=== PATIENT | male | born 1965 | race Caucasian/White ===

== ENCOUNTER 2024-05-13 10:43 | Emergency (ER) | payer OTHER, SELFPAY ==
[2024-05-13 10:45] VITALS: BP 166/98
--- NOTE | 2024-05-13 11:37 | ED.GENMED ---
History of Present Illness
General
Chief Complaint: Musculo-Skeletal Complaint
Source: patient
Time Seen by Provider: 05/13/24 11:18
History of Present Illness
History of Present Illness:
58-year-old male presenting to the emergency department for evaluation of bilateral knee pain after jumping out of a truck while at work and sustained pain to both knees stating he has a little bit more pain in the left knee but his right knee does
have a burning sensation. He notes that he had a previous meniscus repair about a year or so ago to the left knee. States he is able to ambulate but with some discomfort. No other injuries were sustained.
Past History
Past History
ED Past Medical History: None
ED Past Surgical History: Orthopedic and Other
Social History
Tobacco: Non-smoker
Alcohol: None
Drug: None
Personal:
Living: with family
Employment: Employed
Review of Systems
Review of Systems
All Other Systems: ROS reviewed and negative except as documented in HPI and ROS
Phy Exam
Physical Exam
Physical Exam:
GENERAL: Alert , in no apparent distress
EYE: conjunctiva clear
Head: Normocephalic atraumatic
NECK: Supple,
ENT: mmm.
LUNGS: no acute respiratory distress
NEUROLOGICAL: Alert and oriented
SKIN: Warm and dry, skin intact.
MUSCULOSKELETAL: Left lower extremity: No obvious deformity, erythema, edema, ecchymosis, abrasions or lacerations. Patient allows for full range of motion of the left knee without much difficulty. Mild tenderness over the anteromedial patella.
Remainder of extremity is warm well-perfused. Right lower extremity: No obvious deformity, erythema, edema, ecchymosis, abrasions or lacerations. Mild tenderness over the patella but otherwise nothing focal.
PSYCH: Normal and appropriate interaction.
Scores
Heart Failure Risk
Heart Failure Risk Score: Not Applicable
Heart Score for Chest Pain Patients
STEMI patient?: Not applicable
Withdrawal Assessment of Alcohol
Withdrawal Assessment Completed?: Not applicable
Course
Orders/Labs/Results
Orders:
Orders
05/13/24 10:47
CR Knee- Right 4 Or More View* Urgent
Comment:
Reason For Exam: pain
Knee, Left 4 or More Views [CR Knee - Left 4 Or More View*] Urgent
Comment:
Reason For Exam: pain
05/13/24 11:37
Sammy Wrap Left-Treatment ONCE
Sammy Wrap Right-Treatment ONCE
Vital Signs
Initial and Last Documented VS:
Initial Vital Signs
Temp Pulse Resp BP Pulse Ox
98.0 F 65 18 166/98 97
05/13/24 10:45 05/13/24 10:45 05/13/24 10:45 05/13/24 10:45 05/13/24 10:45
Last Documented Vital Signs
Temp Pulse Resp BP Pulse Ox
98.0 F 65 18 166/98 97
05/13/24 10:45 05/13/24 10:45 05/13/24 10:45 05/13/24 10:45 05/13/24 10:45
MDM/Problems Addressed
Differential Diagnosis Includes:
Contusion, ligamentous injury, meniscal injury, fracture
MDM/Problems Addressed:
58-year-old male presenting to the emergency department for evaluation of bilateral knee pain following an injury while at work. X-rays ordered from triage which do not show any significant abnormalities or joint effusions. Will place in a Sammy
wrap for comfort. NSAIDs/Tylenol as needed for pain. Patient will follow-up with [facility] orthopedics who performed his previous surgery in the past. Aware of return precautions to the ER.
*Radiology
Radiology exam reviewed: preliminary read by ED provider (No acute fracture)
*Pulse Oximetry
Patient hypoxic: no
*Critical Care Note
Total Time (30-74mins, 75-104mins- exclusive of procedures): Not Applicable
ED Attending Note
-
Portions of this chart may have been created with voice recognition software.� Occasional wrong word or��sound alike� substitutions may have occurred due to the inherent limitations of voice recognition software.
Discharge Plan
Departure
Patient Disposition: Home (Routine Discharge)
Date of Disposition: 05/13/24
Time of Disposition: 11:37
Patient with high blood pressure during this ER visit?: Yes
Discharge Problem:
Bilateral knee pain
Instructions: Knee Pain (DC)
Prescriptions:
No Action
sulfamethoxazole-trimethoprim 800 MG/160 MG tablet
1 tab PO BID Qty: 20 0RF
hydrocodone-acetaminophen 5 MG/500 MG tablet
1 tab PO .Q4-6HPRN PRN (Reason: PAIN) Qty: 20 0RF
Referrals:
UNKNOWN - PT DOES,NOT KNOW [Family Provider] -
Mau Sanders MD [Active] -
Stand Alone Forms: Return to Work
Interventions
Interventions:
*Risk Screen - Suicide Last Done: 05/13/24 10:47
*General Assessment Last Done: 05/13/24 10:47
*Neglect/Abuse Screening Last Done: 05/13/24 10:47
ED- Fall Risk Assessment Last Done: 05/13/24 11:53
*ED COVID-19 Vaccine History Last Done: 05/13/24 11:53
*Nursing Disposition Last Done: 05/13/24 11:53
ED-Musculoskeletal Assessment Last Done: 05/13/24 11:52
Discharge Date and Time
Discharge Date/Time: 05/13/24 11:53
Print Language: DOMINICAN
== END 2024-05-13 11:53 | disposition home or self-care (01) ==
LOC: EMR 10:43
PROVIDERS: EMERGENCY PHYSICIAN Student in an Organized Health Care Education/Training Program
DX: M25.562 Pain in left knee (principal); M25.561 Pain in right knee
CPT/HCPCS: 99283; 73564

== ENCOUNTER → 2024-10-20 13:51 | Outpatient (REF) | payer OTHER, SELFPAY | LOC: RAD 13:51 | PROVIDERS: ATTENDING PHYSICIAN Physician Assistant; FAMILY PHYSICIAN Orthopaedic Surgery | DX: M79.661 Pain in right lower leg (principal) | CPT/HCPCS: 93971 ==